=== PATIENT | female | born 1985 | race Caucasian/White ===

== ENCOUNTER 2020-04-03 08:21 | Outpatient (CLI) | payer OTHER, SELFPAY ==
[2020-04-03 08:36] LABS: Basophils Percent Auto 0.3 % (0.2-1.2); Eosinophils Absolute Auto 0.1 K/mm3 (0-0.3); Eosinophils Percent Auto 1.2 % (0-4.4); Hematocrit 37.3 % (37.0-47.0); Hemoglobin 12.4 g/dL (12.0-15.0); Immature Granulocyte Absolute 0.01 K/mm3 (0.00-0.031); Immature Granulocyte Percent A 0.1 % (0-0.5); Lymphocytes Percent Auto 27.7 % (18.3-44.2); Mean Corpuscular HGB Conc 33.2 g/dl (32-36); Mean Corpuscular Volume 90.3 fl (80-100); Mean Platelet Volume 9.5 fl (7.4-10.4); Monocytes Absolute Auto 0.4 K/mm3 (0.1-0.6); Monocytes Percent Auto 6.4 % (2.6-8.5); Neutrophils Absolute Auto 4.4 K/mm3 (1.3-6.7); Neutrophils Percent Auto 64.3 % (45.5-73.1); Platelet Count Result 312 k/mm3 (150-375); Red Blood Count 4.13 M/mm3 (4.2-5.4); Red Cell Distribution Width 12.6 % (11.5-14.5); White Blood Count 6.9 K/mm3 (4.5-10.0)
[2020-04-03 08:49] LABS: Anion Gap 9 mmol/L (8-16); Blood Urea Nitrogen 15 mg/dL (7-17); Calcium 9.3 mg/dL (8.4-10.2); Carbon Dioxide 28 mmol/L (22-30); Chloride 104 mmol/L (98-107); Estimated Glomerular Filt Rate > 60; Glucose 90 mg/dL (65-105); Potassium 3.9 mmol/L (3.4-5.0); Sodium 141 mmol/L (137-145)
[2020-04-03 09:34] LABS: Free T4 Free Thyroxine 0.59 ng/mL (0.78-2.19)
== END 2020-04-03 08:22 | disposition home or self-care (01) ==
PROVIDERS: PCP Family Medicine; Visit Provider Nurse Practitioner Family
DX: R42 Dizziness and giddiness (principal); E03.9 Hypothyroidism, unspecified
CPT/HCPCS: 36415; 80048; 84439; 84443; 85025

== ENCOUNTER 2020-07-07 09:01 | Outpatient (CLI) | payer OTHER, SELFPAY ==
--- NOTE | 2020-07-22 22:47 | WPDHOMESLEEP ---
Sleep Study - Home Unattended Date of Study: 07/07/20 Ordering Provider: Moisés Canales MD Interpreting Provider: Miranda Saleh MD Home Sleep Study Type: Apnea Link Air Height: 1.63 m Weight: 88.904 kg Body Mass Index: 33.6 Neck Circumference (inches): 17 [place]orton: 11 Reason for Sleep Study non restorative sleep, restless sleep, excessive daytime sleepiness Sleep History Jacqueline Fernandes is a 35 year old female with complaints of tossing and turning throughout the night. When she wakes in the morning, she feels that she has not had sufficient rest no matter how long she sleeps. This started after she quit working in November of last year. 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 She frequently snores, rarely loudly enough that others complain about it. She rarely awakens at night with heartburn, belching or coughing. She does not awaken from sleep feeling short of breath. She constantly has trouble sleeping with a cold. She does not wake up gasping for breath during the night. She does not have breathing problems at night reported to her by others. She does not sweat excessively at night. She does not notice her heart pounding or beating irregularly at night. She constantly falls asleep during the day, never involuntarily and never while driving. She does not have loss of muscle tone with strong emotion. She occasionally has daytime difficulties due to excessive sleepiness. She occasionally feels paralyzed on waking or falling asleep. She does not have vivid dreamlike scenes upon awakening or falling asleep. She occasionally feels afraid to go to sleep. She frequently had nightmares before starting lexapro. She occasionally remembers her dreams. She frequently has racing thoughts. She occasionally has feelings of sadness, depression and anxiety. She rarely has muscular tension. After starting Lexapro, she frequently notices parts of her body jerking and she frequently kicks at night. She does not have crawling or aching feelings in her legs and does not have any kind of leg pain at night. She does not have morning jaw pain. She rarely grinds her teeth during sleep. She constantly is bothered by pain during the day. She never is awakened by pain at night. She constantly wakes up feeling stiff in the morning with sore achy muscles. She frequently wakes up with pain and the neck and spine. She has headaches, fatigue, memory problems and concentration difficulties. Normal bedtime is between 9 and 9:30 p.m. taking 30 minutes or longer to fall asleep on most nights. She does not often wake during the night. When she does awaken it takes 30 minutes to an hour to get back to sleep. She will try to reposition herself in bed sometimes tossing and turning until she is able to fall asleep again. She wakes the morning at 6:30 a.m.. On the weekends she stays awake until 10-11 p.m., also wakes at 6:30 a.m. in the morning. She takes naps in the afternoon or evening. A short nap is not refreshing. She is usually drowsy in the morning for 2 hours. She feels better in the afternoon compared to the morning. Habits: she drinks caffeine 2-3 cups of coffee in the morning. No alcohol or recreational drugs. [facility], [facility] Past Medical History Medical History (Updated 07/22/20 @ 22:57 by Miranda Saleh MD) BMI 34.0-34.9,adult Depression with anxiety Family History Family History Mother Family history of malignant neoplasm Family history of diabetes mellitus in first degree relative Grandparent Diabetes mellitus Father No problems noted. Sibling No problems noted. Other Family history of blood dyscrasia Social History Social History Tobacco type: e-cigarettes/vaping [place]
[2020-07-22 23:02] VITALS: BMI 33.6
== END 2020-07-07 09:02 | disposition home or self-care (01) ==
LOC: ANHCSM 09:03
PROVIDERS: PCP Family Medicine; Visit Provider Family Medicine
DX: G47.33 Obstructive sleep apnea (adult) (pediatric) (principal)
CPT/HCPCS: 95806

== ENCOUNTER 2021-06-01 13:11 | Outpatient (CLI) | payer OTHER, SELFPAY ==
[2021-06-01 14:37] LABS: Beta HCG Quantitative < 2.39 mIU/ML
[2021-06-04 06:06] LABS: FSH 145.9 mIU/mL (***); Prolactin 6.2 ng/mL (***)
== END 2021-06-01 13:12 | disposition home or self-care (01) ==
LOC: ANHLAB 13:13
PROVIDERS: PCP Family Medicine; Visit Provider Obstetrics & Gynecology
DX: N92.6 Irregular menstruation, unspecified (principal)
CPT/HCPCS: 36415; 83001; 84146; 84702

== ENCOUNTER 2021-06-07 13:41 | Outpatient (CLI) | payer OTHER, SELFPAY ==
[2021-06-14 22:51] LABS: Estradiol, Ultrasensitive 8 pg/mL
== END 2021-06-07 13:42 | disposition home or self-care (01) ==
PROVIDERS: PCP Family Medicine; Visit Provider Obstetrics & Gynecology
DX: N92.6 Irregular menstruation, unspecified (principal)
CPT/HCPCS: 36415; 82670

== ENCOUNTER 2022-02-17 08:22 | Outpatient (CLI) | payer OTHER, SELFPAY ==
[2022-02-17 08:44] LABS: Hematocrit 39.9 % (37.0-47.0); Mean Corpuscular HGB Conc 32.6 g/dl (32-36); Mean Corpuscular Hemoglobin 29.9 pg (26-34); Mean Corpuscular Volume 91.7 fl (80-100); Mean Platelet Volume 9.9 fl (7.4-10.4); Platelet Count Result 348 k/mm3 (150-375); Red Blood Count 4.35 M/mm3 (4.2-5.4); White Blood Count 6.2 K/mm3 (4.5-10.0)
[2022-02-17 08:47] LABS: Alanine Aminotransferase 38 U/L (6-35); Albumin Level 4.6 g/dL (3.5-5.1); Alkaline Phosphatase 54 U/L (38-126); Anion Gap 9 mmol/L (8-16); Aspartate Amino Transferase 32 U/L (14-36); Bilirubin,Total 0.3 mg/dL (0.2-1.3); Blood Urea Nitrogen 13 mg/dL (7-17); Calcium 9.3 mg/dL (8.4-10.2); Carbon Dioxide 30 mmol/L (22-30); Chloride 100 mmol/L (98-107); Cholesterol 231 mg/dL (0-200); Estimated Glomerular Filt Rate > 60; Glucose 87 mg/dL (65-110); HDL Direct 53 mg/dL; Potassium 3.9 mmol/L (3.4-5.0); Sodium 139 mmol/L (137-145); Triglycerides 159 mg/dL (<150)
[2022-02-17 08:59] LABS: LDL Cholesterol Direct 138 mg/dL
[2022-02-17 09:16] LABS: Vitamin D 25 Hydroxy 29.4 ng/mL
[2022-02-24 21:26] LABS: Estradiol, Ultrasensitive 13 pg/mL
== END 2022-02-17 08:23 | disposition home or self-care (01) ==
LOC: ANHLAB 08:23
PROVIDERS: PCP Family Medicine; Referring Provider Nurse Practitioner Family; Visit Provider Obstetrics & Gynecology
DX: Z13.220 Encounter for screening for lipoid disorders (principal); E56.9 Vitamin deficiency, unspecified; G47.33 Obstructive sleep apnea (adult) (pediatric); E03.9 Hypothyroidism, unspecified; F32.9 Major depressive disorder, single episode, unspecified
CPT/HCPCS: 36415; 80053; 80061; 82306; 82670; 83001; 84443; 85027

== ENCOUNTER 2023-08-24 16:57 | Outpatient (CLI) | payer OTHER, MEDICAID, SELFPAY ==
[2023-08-24 17:15] LABS: Eosinophils Absolute Auto 0.2 K/mm3 (0-0.3); Eosinophils Percent Auto 4.1 % (0-4.4); Hematocrit 38.3 % (37.0-47.0); Hemoglobin 12.6 g/dL (12.0-15.0); Immature Granulocyte Absolute 0.01 K/mm3 (0.00-0.031); Immature Granulocyte Percent A 0.2 % (0-0.5); Lymphocytes Absolute Auto 0.48 K/mm3 (0.9-3.2); Lymphocytes Percent Auto 11.6 % (18.3-44.2); Mean Corpuscular HGB Conc 32.9 g/dl (32-36); Mean Corpuscular Hemoglobin 30.1 pg (26-34); Mean Corpuscular Volume 91.4 fl (80-100); Mean Platelet Volume 9.7 fl (7.4-10.4); Monocytes Absolute Auto 0.5 K/mm3 (0.1-0.6); Monocytes Percent Auto 11.3 % (2.6-8.5); Neutrophils Percent Auto 72.8 % (45.5-73.1); Platelet Count Result 283 k/mm3 (150-375); Red Blood Count 4.19 M/mm3 (4.2-5.4); Red Cell Distribution Width 13.2 % (11.5-14.5); White Blood Count 4.2 K/mm3 (4.5-10.0)
[2023-08-24 17:25] LABS: Alanine Aminotransferase 81 U/L (6-35); Albumin Level 4.3 g/dL (3.5-5.1); Alkaline Phosphatase 72 U/L (38-126); Anion Gap 5 mmol/L (4-12); Aspartate Amino Transferase 48 U/L (14-36); Bilirubin,Total 0.3 mg/dL (0.2-1.3); Blood Urea Nitrogen 12 mg/dL (7-17); Calcium 9.3 mg/dL (8.4-10.2); Carbon Dioxide 29 mmol/L (22-30); Chloride 104 mmol/L (98-107); Estimated Glomerular Filt Rate > 60; Glucose 136 mg/dL (65-110); Potassium 4.1 mmol/L (3.4-5.0); Sodium 138 mmol/L (137-145)
[2023-08-24 17:34] LABS: Appearance Urine Cloudy (Clear); Bacteria Urine 4+ /hpf; Bilirubin Urine Negative (Negative); Blood Urine Negative (Negative); Color Urine Yellow (Yellow); Glucose Urine UA Negative (Negative); Ketones Urine Trace mg/dL (Negative); Leukocyte Esterase Ur Negative LEU/UL (Negative); Need Manual Microscopic Reviewed; Nitrate Urine Negative (Negative); Protein Urine Negative (Negative); Specific Grav Ur 1.025 (1.001-1.035); Squamous Epithelial Cell Urine Moderate /hpf (Few); pH Urine 6.5 (5.0-9.0)
[2023-08-24 17:43] LABS: Add Urine Microscopic? YES
== END 2023-08-24 16:58 | disposition home or self-care (01) ==
LOC: ANHLAB 16:58
PROVIDERS: PCP Family Medicine; Visit Provider Physician Assistant
DX: N30.00 Acute cystitis without hematuria (principal); R74.01 Elevation of levels of liver transaminase levels
CPT/HCPCS: 36415; 80053; 81001; 85025; 87086

== ENCOUNTER 2023-08-25 11:55 | Outpatient (CLI) | payer OTHER, MEDICAID, SELFPAY ==
--- NOTE | ~2023-08-25 | US_ITS ---
Limited Abdominal Sonogram: Real-time sonographic imaging of the right upper quadrant was performed. Clinical History: Right upper quadrant pain Findings: The liver appears echogenic, with no evidence of mass lesion or bile duct dilatation. Main portal vein demonstrates normal direction of flow. The gallbladder is well distended, and appears no rmal with no evidence of gallstone or wall thickening. The common bile duct measures 3 mm. The visua lized pancreas, aorta, and IVC are unremarkable. Right kidney measures 10.7 cm in length, without yonatan dence of hydronephrosis. Impression: Diffuse fatty infiltration of the liver. Reviewed, dictated and finalized at location M. Impression: Diffuse fatty infiltration of the liver.
== END 2023-08-25 11:56 ==
LOC: MICIMG 11:56
PROVIDERS: PCP Physician Assistant; Visit Provider Physician Assistant
DX: K76.0 Fatty (change of) liver, not elsewhere classified (principal)
CPT/HCPCS: 76705

== ENCOUNTER 2024-05-14 09:22 | Outpatient (CLI) | payer OTHER, SELFPAY ==
[2024-05-14 10:03] LABS: Basophils Percent Auto 0.5 % (0.2-1.2); Eosinophils Absolute Auto 0.1 K/mm3 (0-0.3); Eosinophils Percent Auto 1.2 % (0-4.4); Hematocrit 39.3 % (37.0-47.0); Hemoglobin 12.7 g/dL (12.0-15.0); Immature Granulocyte Absolute 0.02 K/mm3 (0.00-0.031); Immature Granulocyte Percent A 0.3 % (0-0.5); Lymphocytes Absolute Auto 2.13 K/mm3 (0.9-3.2); Lymphocytes Percent Auto 32.9 % (18.3-44.2); Mean Corpuscular HGB Conc 32.3 g/dl (32-36); Mean Corpuscular Hemoglobin 29.1 pg (26-34); Mean Corpuscular Volume 90.1 fl (80-100); Mean Platelet Volume 10.1 fl (7.4-10.4); Monocytes Absolute Auto 0.4 K/mm3 (0.1-0.6); Monocytes Percent Auto 6.6 % (2.6-8.5); Neutrophils Absolute Auto 3.8 K/mm3 (1.3-6.7); Neutrophils Percent Auto 58.5 % (45.5-73.1); Platelet Count Result 335 k/mm3 (150-375); Red Blood Count 4.36 M/mm3 (4.2-5.4); White Blood Count 6.5 K/mm3 (4.5-10.0)
[2024-05-14 10:20] LABS: Alanine Aminotransferase 41 U/L (6-35); Albumin Level 4.2 g/dL (3.5-5.1); Alkaline Phosphatase 68 U/L (38-126); Anion Gap 6 mmol/L (4-12); Aspartate Amino Transferase 28 U/L (14-36); Bilirubin,Total 0.6 mg/dL (0.2-1.3); Blood Urea Nitrogen 15 mg/dL (7-17); Calcium 9.5 mg/dL (8.4-10.2); Carbon Dioxide 30 mmol/L (22-30); Chloride 103 mmol/L (98-107); Cholesterol 216 mg/dL (0-200); Estimated Glomerular Filt Rate > 60; Glucose 91 mg/dL (65-110); HDL Direct 44 mg/dL; Potassium 4.2 mmol/L (3.4-5.0); Sodium 139 mmol/L (137-145); Triglycerides 155 mg/dL (<150)
[2024-05-14 10:31] LABS: LDL Cholesterol Direct 140 mg/dL
[2024-05-14 10:39] LABS: Vitamin D 25 Hydroxy 23.4 ng/mL
[2024-05-16 20:23] LABS: Free Insulin 16.6 uIU/mL (1.5-14.9)
== END 2024-05-14 09:23 | disposition home or self-care (01) ==
LOC: ANHLAB 09:28
PROVIDERS: PCP Physician Assistant Medical; Visit Provider Physician Assistant Medical
DX: E78.5 Hyperlipidemia, unspecified (principal); F32.9 Major depressive disorder, single episode, unspecified; E03.9 Hypothyroidism, unspecified; R74.01 Elevation of levels of liver transaminase levels; N92.6 Irregular menstruation, unspecified; E55.9 Vitamin D deficiency, unspecified; G43.909 Migraine, unspecified, not intractable, without status migrainosus; G47.33 Obstructive sleep apnea (adult) (pediatric)
CPT/HCPCS: 36415; 80053; 80061; 82306; 82533; 82607; 83525; 83527; 84402; 84403; 84443; 85025

== ENCOUNTER 2024-10-15 08:13 | Outpatient (CLI) | payer OTHER, SELFPAY ==
[2024-10-15 09:09] LABS: Alanine Aminotransferase 48 U/L (6-35)
== END 2024-10-15 08:14 | disposition home or self-care (01) ==
LOC: ANHLAB 08:14
PROVIDERS: PCP Physician Assistant Medical; Visit Provider Physician Assistant Medical
DX: R74.01 Elevation of levels of liver transaminase levels (principal); E16.8 Other specified disorders of pancreatic internal secretion
CPT/HCPCS: 36415; 83525; 84460